=== PATIENT | male | born 2000 | race Caucasian/White ===

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

== ENCOUNTER 2021-10-09 20:00 | Emergency (ER) | payer MEDICAID ==
[~2021-10-09 20:00] MED LIST: METH-313 PO
--- NOTE | 2021-10-09 21:23 | ED General ---
General Chief Complaint: General Problems/Pain Stated Complaint: ALLERGIC REACTION History of Present Illness Date Seen by Provider: Oct 09, 2021 Time Seen by Provider: 20:50 Initial Comments 21-year-old male presents for respiratory distress earlier today after being in a storage unit that had animal dander, dust, and rodent droppings. Patient reports feeling as though his throat was swelling. Girlfriend reports that he had difficulty breathing earlier today, while at the pool for approxima tely 30 minutes but it resolved. This was prior to his exposure in the storage unit. Patient denies any known allergies, he has no history of asthma. He does not have a primary care provider or take medications regularly. He ambulated with a normal gait and had no shortness of air on presentation. Timing/Duration: 4-6 Hours Severity: Mild Associated Systoms: Denies Symptoms Allergies and Home Medications Patient Home Medication List Home Medication List Reviewed: Yes Methocarbamol (Robaxin-750) 750 Mg Tablet, 750 MG PO Q4H PRN for PAIN-MODERATE (5-7) Prescribed by: NEEL MAGUIRE on 03/08/19 1418 Review of Systems Review of Systems Constitutional: no symptoms reported, see HPI EENTM: see HPI, no symptoms reported Respiratory: no symptoms reported, see HPI, short of breath (Earlier today) Gastrointestinal: no symptoms reported, see HPI All Other Systems Reviewed Negative Unless Noted: Yes Past Ssgcwsc-Yhytam-Ihitbi Hx Patient Social History Tobacco Use?: Yes E-Cig or Vaping type used: Nicotine Alcohol Use?: No Seasonal Allergies Seasonal Allergies: No Past Medical History Surgeries: No Respiratory: No Cardiac: No Neurological: No Genitourinary: No Gastrointestinal: No Musculoskeletal: No Endocrine: No HEENT: No Cancer: No Psychosocial: No Integumentary: No Blood Disorders: No Family Medical History Reviewed Nursing Family Hx Physical Exam Vital Signs Vital Signs - First Documented Capillary Refill : Height, Weight, BMI Height: '" Weight: lbs. oz. kg; 29.00 BMI Method: General Appearance: No Apparent Distress, WD/WN HEENT: PERRL/EOMI, TMs Normal, Normal ENT Inspection, Pharynx Normal Neck: Full Range of Motion, Normal Inspection, Non Tender, Supple Respiratory: Chest Non Tender, Lungs Clear, Normal Breath Sounds Cardiovascular: Regular Rate, Rhythm, No Edema, No Murmur, Normal Peripheral Pulses Extremity: Normal Capillary Refill, Normal Inspection, Normal Range of Motion Neurologic/Psychiatric: Alert, Oriented x3, No Motor/Sensory Deficits, Normal Mood/Affect Skin: Normal Color, Warm/Dry Progress/Results/Core Measures Suspected Sepsis SIRS Temperature: Pulse: Respiratory Rate: Blood Pressure / Mean: Results/Orders Vital Signs/I&O 10/09/21 10/09/21 10/09/21 20:39 20:39 21:24 Temp 36.2 36.2 Pulse 86 78 Resp 16 16 B/P (MAP) 135/87 (103) 127/76 Pulse Ox 98 96 O2 Delivery Room Air Room Air Room Air Capillary Refill : Departure Impression Primary Impression: General medical exam Disposition: HOME, SELF-CARE Condition: Improved Departure-Patient Inst. Decision time for Depature: 21:15 Referrals: [facility],LOCAL PHYSICIAN (PCP) Primary Care Physician Patient Instructions: Allergic Reaction ED Add. Discharge Instructions: Wear a mask when you are in the storage unit. Keep door open for improved circulation. You can take Benadryl 25 mg 30 minutes prior to exposure. Establish care with a primary care provider at [facility]. Return to the emergency department for new, urgent healthcare problems. All discharge instructions reviewed with patient and/or family. Voiced understanding. KAUSHIK VERGARA Oct 09, 2021 21:23
[2021-10-09 21:24] VITALS: BP 127/76
== END 2021-10-09 21:29 | disposition home or self-care (01) ==
LOC: EDUNIT# 20:00 → ER 20:03
DX: J30.81 Allergic rhinitis due to animal (cat) (dog) hair and dander (principal); F17.290 Nicotine dependence, other tobacco product, uncomplicated; Z28.310 Unvaccinated for COVID-19
CPT/HCPCS: 99281

== ENCOUNTER 2022-01-29 23:15 | Emergency (ER) | payer MEDICAID ==
[~2022-01-29] VITALS: Ht 167.6 cm; Wt 104.3 kg
[2022-01-29] MEDS ORDERED: FAMOTIDINE 20 MG (PEPCID) TABLET PO STA (23:38)
--- NOTE | 2022-01-29 23:38 | ED Abdominal Pain ---
General Chief Complaint: Abdominal/GI Problems Stated Complaint: ABD PAIN,VOMITING Nursing Triage Note: PT AMB TO RM 10 WITH COMPLAINTS OF ABD PAIN THAT STARTED ABOUT 22 HOURS AGO. Source of Information: Patient Exam Limitations: No Limitations History of Present Illness Date Seen by Provider: Jan 29, 2022 Time Seen by Provider: 23:17 Initial Comments 21-year-old male with no pertinent past medical history coming in due to epigastric abdominal discomfort. Started almost 24 hours ago, constant, mild right now with the most no pain, but most was 8 out of 10. Feels like pressure to him. Says it radiates to his right flank at times. Denies any fever, dysuria, hematuria, chest pain, shortness of breath, current nausea, diarrhea, rash, or any other concerns. Did state after he ate breakfast at 10 AM he had an episode of nonbloody nonbilious vomiting. He states he has been belching quite a bit with it. Otherwise denies any other acute complaints. Allergies and Home Medications Allergies Coded Allergies: No Known Drug Allergies (Unverified , 01/29/22) Patient Home Medication List Home Medication List Reviewed: Yes Methocarbamol (Robaxin-750) 750 Mg Tablet, 750 MG PO Q4H PRN for PAIN-MODERATE (5-7) Prescribed by: NEEL MAGUIRE on 03/08/19 5588 Review of Systems Review of Systems Constitutional: No fever EENTM: No Nose Congestion Respiratory: Denies Cough Cardiovascular: Denies Chest Pain Gastrointestinal: Abdominal Pain Genitourinary: Denies Burning Musculoskeletal: no symptoms reported Skin: no symptoms reported Psychiatric/Neurological: No Symptoms Reported Endocrine: No Symptoms Reported Hematologic/Lymphatic: No Symptoms Reported All Other Systems Reviewed Negative Unless Noted: Yes Past Fpjeydg-Jqrewt-Kavzui Hx Patient Social History Tobacco Use?: Yes Tobacco type used: Cigarettes Substance use?: No Alcohol Use?: No Immunizations Up To Date Influenza Vaccine Up-to-Date: No; Not Current Seasonal Allergies Seasonal Allergies: No Past Medical History Surgeries: No Respiratory: No Cardiac: No Neurological: No Genitourinary: No Gastrointestinal: No Musculoskeletal: No Endocrine: No HEENT: No Cancer: No Psychosocial: No Integumentary: No Blood Disorders: No Physical Exam Vital Signs Vital Signs - First Documented 01/29/22 23:26 Pulse 90 B/P (MAP) 127/72 (90) Pulse Ox 96 Capillary Refill : Height/Weight/BMI Height: '" Weight: lbs. oz. kg; 37.00 BMI Method: General Appearance: WD/WN, no apparent distress HEENT: PERRL/EOMI, normal ENT inspection, pharynx normal Neck: non-tender, full range of motion, supple, normal inspection Respiratory: chest non-tender, lungs clear, normal breath sounds, no respiratory distress, no accessory muscle use Cardiovascular: regular rate, rhythm, no edema, no murmur Gastrointestinal: normal bowel sounds, non tender, soft; No distended, No guarding, No rebound Extremities: normal range of motion, non-tender, normal inspection, no pedal edema, no calf tenderness, normal capillary refill Back: normal inspection, no CVA tenderness, no vertebral tenderness Neurologic/Psychiatric: no motor/sensory deficits, alert, normal mood/affect Skin: normal color, warm/dry Lymphatic: no adenopathy Progress/Results/Core Measures Results/Orders Lab Results Laboratory Tests Test 01/29/22 23:40 01/30/22 00:14 Range/Units White Blood Count 16.6 H 4.3-11.0 10^3/uL Red Blood Count 5.83 H 4.30-5.52 10^6/uL Hemoglobin 16.5 13.3-17.7 g/dL Hematocrit 49 40-54 % Mean Corpuscular Volume 85 80-99 fL Mean Corpuscular Hemoglobin 28 25-34 pg Mean Corpuscular Hemoglobin Concent 34 32-36 g/dL Red Cell Distribution Width 12.4 10.0-14.5 % Platelet Count 293 130-400 10^3/uL Mean Platelet Volume 10.8 9.0-12.2 fL Immature Granulocyte % (Auto) 0 % Neutrophils (%) (Auto) 74 42-75 % Lymphocytes (%) (Auto) 14 12-44 % Monocytes (%) (Auto) 8 0-12 % Eosinophils (%) (Auto) 3 0-10 % Basophils (%) (Auto) 0 0-10 % Neutrophils # (Auto) 12.3 H 1.8-7.8 10^3/uL Lymphocytes # (Auto) 2.4 1.0-4.0 10^3/uL Monocytes # (Auto) 1.3 H 0.0-1.0 10^3/uL Eosinophils # (Auto) 0.4 H 0.0-0.3 10^3/uL Basophils # (Auto) 0.1 0.0-0.1 10^3/uL Immature Granulocyte # (Auto) 0.1 0.0-0.1 10^3/uL Sodium Level 138 135-145 MMOL/L Potassium Level 4.1 3.6-5.0 MMOL/L Chloride Level 101 98-107 MMOL/L Carbon Dioxide Level 26 21-32 MMOL/L Anion Gap 11 5-14 MMOL/L Blood Urea Nitrogen 12 7-18 MG/DL Creatinine 0.84 0.60-1.30 MG/DL Estimat Glomerular Filtration Rate 127 BUN/Creatinine Ratio 14 Glucose Level 106 H 70-105 MG/DL Calcium Level 10.8 H 8.5-10.1 MG/DL Corrected Calcium 8.5-10.1 MG/DL Total Bilirubin 0.8 0.1-1.0 MG/DL Aspartate Amino Transf (AST/SGOT) 33 5-34 U/L Alanine Aminotransferase (ALT/SGPT) 107 H 0-55 U/L Alkaline Phosphatase 93 40-136 U/L C-Reactive Protein High Sensitivity 1.06 H 0.00-0.50 MG/DL Total Protein 7.7 6.4-8.2 GM/DL Albumin 4.6 H 3.2-4.5 GM/DL Lipase 10 8-78 U/L Urine Color YELLOW Urine Clarity CLEAR Urine pH 8.0 5-9 Urine Specific [place] 1.015 L 1.016-1.022 Urine Protein NEGATIVE NEGATIVE Urine Glucose (UA) NEGATIVE NEGATIVE Urine Ketones NEGATIVE NEGATIVE Urine Nitrite NEGATIVE NEGATIVE Urine Bilirubin NEGATIVE NEGATIVE Urine Urobilinogen 1.0 < = 1.0 MG/DL Urine Leukocyte Esterase NEGATIVE NEGATIVE Urine RBC (Auto) NEGATIVE NEGATIVE Urine RBC NONE /HPF Urine WBC NONE /HPF Urine Crystals PRESENT H /LPF Urine Amorphous Sediment LARGE GURVINDER PHOSPHATE H /LPF Urine Bacteria NEGATIVE /HPF Urine Casts NONE /LPF Urine Mucus SMALL H /LPF Urine Culture Indicated NO My Orders Orders - KEVIN VASQUEZ MD Cbc With Automated Diff (01/29/22 23:36) Comprehensive Metabolic Panel (01/29/22 23:36) Hs C Reactive Protein (01/29/22 23:36) Lipase (01/29/22 23:36) Ua Culture If Indicated (01/29/22 23:36) Lidocaine 2% Viscous 15 Ml (Xylocaine Vi (01/29/22 23:45) Famotidine Tablet (Pepcid Tablet) (01/29/22 23:38) Antacid Suspension (Mylanta Suspension (01/29/22 23:45) Hyoscyamine Sl Tablet (Levsin Sl Tablet) (01/29/22 23:45) Ed Iv/Invasive Line Start (01/29/22 23:38) Ondansetron Injection (Zofran Injectio (01/29/22 23:45) Ketorolac Injection (Toradol Injection) (01/29/22 23:45) Manual Differential (01/29/22 23:40) Medications Given in ED Current Medications Medications Dose Ordered Sig/Kim Route Start Time Stop Time Status Last Admin Dose Admin Al Hydrox/Mg Hydrox/Simethicone 30 ml ONCE ONCE PO 01/29/22 23:45 01/29/22 23:46 DC 01/30/22 00:00 30 ML Hyoscyamine Sulfate 0.125 mg ONCE ONCE SL 01/29/22 23:45 01/29/22 23:46 DC 01/29/22 23:59 0.125 MG Ketorolac Tromethamine 15 mg ONCE ONCE IVP 01/29/22 23:45 01/29/22 23:46 DC 01/30/22 00:00 15 MG Lidocaine HCl 15 ml ONCE ONCE PO 01/29/22 23:45 01/29/22 23:46 DC 01/30/22 00:00 15 ML Ondansetron HCl 4 mg ONCE ONCE IVP 01/29/22 23:45 01/29/22 23:46 DC 01/29/22 23:59 4 MG Vital Signs/I&O 01/29/22 23:26 Pulse 90 B/P (MAP) 127/72 (90) Pulse Ox 96 Blood Pressure Mean: 90 Progress Progress Note : Progress Note 21-year-old male with above history coming in due to epigastric pain. ABCs were intact and vitals were stable on presentation. Physical exam reassuring including a soft and nontender abdomen on exam. An IV was placed and he was given a GI cocktail as well as Toradol for pain. His symptoms improved sig nificantly. His white blood cell count is elevated, creatinine normal, CRP just slightly elevated, but continues to not have any abdominal tenderness, specifically none in his right lower quadrant. Urinalysis with no signs of infection. Likely is GERD versus gastritis versus some other etiology. Overall he is well-appearing and I believe stable for outpatient follow-up. He was sent home with strict return precautions Departure Impression Primary Impression: Acute epigastric pain Disposition: HOME, SELF-CARE Condition: Stable Departure-Patient Inst. Decision time for Depature: 00:38 Referrals: NO,LOCAL PHYSICIAN (PCP/Family) Primary Care Physician Patient Instructions: Severe Abdominal Pain, Adult (DC) Add. Discharge Instructions: This could be gastritis or inflammation of your stomach from infection that we will have the past versus more related to reflux. It does not appear like you have any type of kidney infection and you were not tender over your appendix. Take tylenol as needed for pain at home. Follow-up with your regular doctor if things or not improving after the next 3 days or so. If things become really severe and you are worried you are having some type of emergency, of course please come back to the ER. Scripts Ondansetron (Ondansetron Odt) 4 Mg Tab.rapdis 4 MG SL Q6H PRN for NAUSEA/VOMITING for 5 Days, #20 TAB Prov: KEVIN VASQUEZ MD 01/30/22 Work/School Note: Work Release Form Date Seen in the Emergency Department: Jan 30, 2022 Return to Work: Jan 31, 2022 Restrictions: Return-No Fever (24hrs), Return-No Vomiting(24hrs) KEVIN VASQUEZ MD Jan 29, 2022 23:38
[2022-01-29] MEDS ORDERED: ONDANSETRON 4 MG/2 ML (SDV) Z0FRAN IVP ONE (23:45)
[2022-01-29] MEDS ORDERED: HYOSCYAMINE 0.125 MG (LEVSIN) TAB SL ONE (23:45)
[2022-01-29] MEDS ORDERED: KETOROLAC 30 MG/ML VIAL IVP ONE (23:45)
[2022-01-29] MEDS ORDERED: LIDOCAINE 2% VISCOUS 15 ML UDC PO ONE (23:45)
[2022-01-29] MEDS ORDERED: ANTACID SUSP 30 ML UDC (MYLANTA) PO ONE (23:45)
[2022-01-29 23:57] LABS: BASOPHILS # (AUTO) 0.1 10^3/uL (0.0-0.1); BASOPHILS % (AUTO) 0 % (0-10); EOSINOPHILS # (AUTO) 0.4 10^3/uL (0.0-0.3); EOSINOPHILS % (AUTO) 3 % (0-10); HEMATOCRIT 49 % (40-54); HEMOGLOBIN 16.5 g/dL (13.3-17.7); LYMPHOCYTES # (AUTO) 2.4 10^3/uL (1.0-4.0); LYMPHOCYTES % (AUTO) 14 % (12-44); MEAN CORPUSCULAR HEMOGLOBIN 28 pg (25-34); MEAN CORPUSCULAR HGB CONC 34 g/dL (32-36); MEAN CORPUSCULAR VOLUME 85 fL (80-99); MEAN PLATELET VOLUME 10.8 fL (9.0-12.2); MONOCYTES # (AUTO) 1.3 10^3/uL (0.0-1.0); MONOCYTES % (AUTO) 8 % (0-12); NEUTROPHILS # (AUTO) 12.3 10^3/uL (1.8-7.8); NEUTROPHILS % (AUTO) 74 % (42-75); PLATELET COUNT 293 10^3/uL (130-400); WHITE BLOOD COUNT 16.6 10^3/uL (4.3-11.0)
[2022-01-30 00:07] LABS: ALANINE AMINOTRANSFERASE 107 U/L (0-55); ALBUMIN 4.6 GM/DL (3.2-4.5); ALKALINE PHOSPHATASE 93 U/L (40-136); BILIRUBIN,TOTAL 0.8 MG/DL (0.1-1.0); BUN/CREATININE RATIO 14; CALCIUM 10.8 MG/DL (8.5-10.1); CARBON DIOXIDE 26 MMOL/L (21-32); CHLORIDE 101 MMOL/L (98-107); CREATININE SERUM 0.84 MG/DL (0.60-1.30); GFR ESTIMATED 127; GLUCOSE 106 MG/DL (70-105); LIPASE 10 U/L (8-78); POTASSIUM 4.1 MMOL/L (3.6-5.0); SODIUM 138 MMOL/L (135-145); TOTAL PROTEIN 7.7 GM/DL (6.4-8.2)
[2022-01-30 00:20] LABS: BILIRUBIN,URINE NEGATIVE (NEGATIVE); CLARITY,URINE CLEAR; COLOR,URINE YELLOW; GLUCOSE, URINE (UA) NEGATIVE (NEGATIVE); KETONES,URINE NEGATIVE (NEGATIVE); LEUKOCYTE ESTERASE ,URINE NEGATIVE (NEGATIVE); NITRITE,URINE NEGATIVE (NEGATIVE); PROTEIN,URINE NEGATIVE (NEGATIVE)
[2022-01-30 00:31] LABS: BACTERIA,URINE NEGATIVE /HPF
[2022-01-30 00:32] LABS: AMORPHOUS SEDIMENT,UR LARGE AMOR PHOSPHATE /LPF
[2022-01-30 00:37] LABS: EOSINOPHILS % (MANUAL) 5 %; LYMPHOCYTES % (MANUAL) 19 %; MONOCYTES % (MANUAL) 5 %; NEUTROPHILS % (MANUAL) 71 %; RBC MORPH NORMAL; TOXIC GRANULATION/VACUOLAZATIO 1+
[2022-01-30] MEDS ORDERED: ONDA4TAB11 SL (00:40)
[2022-01-30 00:50] VITALS: BP 133/87
[2022-01-31] MEDS ORDERED: FAMO-119 PO (21:12)
[2022-01-31] MEDS ORDERED: SUCR1TAB36 PO (21:12)
== END 2022-01-30 00:50 | disposition home or self-care (01) ==
LOC: EDUNIT# 23:15 → ER 23:21
DX: R10.13 Epigastric pain (principal); R11.10 Vomiting, unspecified; D72.829 Elevated white blood cell count, unspecified; R79.82 Elevated C-reactive protein (CRP); F17.210 Nicotine dependence, cigarettes, uncomplicated; Z28.310 Unvaccinated for COVID-19
CPT/HCPCS: 36415; 80053; 81000; 83690; 85007; 85027; 86141

== ENCOUNTER 2022-01-31 19:40 | Emergency (ER) | payer MEDICAID ==
[~2022-01-31] VITALS: Ht 167.6 cm; Wt 104.3 kg
[~2022-01-31 19:40] MED LIST changes: +ONDA4TAB11 SL
--- NOTE | 2022-01-31 20:07 | ED Abdominal Pain ---
General Chief Complaint: Abdominal/GI Problems Stated Complaint: N/V,ABD PAIN/CRAMPING,SORE THROAT,CONSTIPATION Nursing Triage Note: c/o epigastric pain, constipation, n/v, sore throat since saturday Source of Information: Patient Exam Limitations: No Limitations History of Present Illness Date Seen by Provider: Jan 31, 2022 Time Seen by Provider: 20:07 Allergies and Home Medications Allergies Coded Allergies: No Known Drug Allergies (Unverified , 01/29/22) Patient Home Medication List Famotidine (Pepcid) 20 Mg Tablet, 20 MG PO BID Prescribed by: LUISA ISABEL on 01/31/222111 Methocarbamol (Robaxin-750) 750 Mg Tablet, 750 MG PO Q4H PRN for PAIN-MODERATE (5-7) Prescribed by: NEEL MAGUIRE on 03/08/19 141 Ondansetron (Ondansetron Odt) 4 Mg Tab.rapdis, 4 MG SL Q6H PRN for NAUSEA/VOMITING Prescribed by: KEVIN VASQUEZ on 01/30/22 0040 Sucralfate (Carafate) 1 Gram Tablet, 1 GM PO QIDPCHS Prescribed by: LUISA ISABEL on 01/31/222111 Past Bgpdihg-Kmkbyx-Vqnrwk Hx Patient Social History Tobacco Use?: Yes Substance use?: No Alcohol Use?: No Pt feels they are or have been: No Immunizations Up To Date First/Initial COVID19 Vaccinat: na Seasonal Allergies Seasonal Allergies: No Past Medical History Surgery/Hospitalization HX: denies Surgeries: No Respiratory: No Cardiac: No Neurological: No Genitourinary: No Gastrointestinal: No Musculoskeletal: No Endocrine: No HEENT: No Cancer: No Psychosocial: No Integumentary: No Blood Disorders: No Physical Exam Vital Signs Vital Signs - First Documented 01/31/22 19:46 Temp 36.5 Pulse 85 Resp 16 B/P (MAP) 132/85 (101) Pulse Ox 97 O2 Delivery Room Air Capillary Refill : Less Than 3 Seconds Height/Weight/BMI Height: '" Weight: lbs. oz. kg; 37.00 BMI Method: Progress/Results/Core Measures Results/Orders Lab Results Laboratory Tests Test 01/31/22 20:00 01/31/22 20:22 Range/Units White Blood Count 15.3 H 4.3-11.0 10^3/uL Red Blood Count 5.97 H 4.30-5.52 10^6/uL Hemoglobin 16.9 13.3-17.7 g/dL Hematocrit 51 40-54 % Mean Corpuscular Volume 85 80-99 fL Mean Corpuscular Hemoglobin 28 25-34 pg Mean Corpuscular Hemoglobin Concent 33 32-36 g/dL Red Cell Distribution Width 12.4 10.0-14.5 % Platelet Count 292 130-400 10^3/uL Mean Platelet Volume 10.8 9.0-12.2 fL Immature Granulocyte % (Auto) 1 % Neutrophils (%) (Auto) 71 42-75 % Lymphocytes (%) (Auto) 17 12-44 % Monocytes (%) (Auto) 10 0-12 % Eosinophils (%) (Auto) 1 0-10 % Basophils (%) (Auto) 0 0-10 % Neutrophils # (Auto) 10.9 H 1.8-7.8 10^3/uL Lymphocytes # (Auto) 2.6 1.0-4.0 10^3/uL Monocytes # (Auto) 1.5 H 0.0-1.0 10^3/uL Eosinophils # (Auto) 0.2 0.0-0.3 10^3/uL Basophils # (Auto) 0.1 0.0-0.1 10^3/uL Immature Granulocyte # (Auto) 0.1 0.0-0.1 10^3/uL Neutrophils % (Manual) 66 % Lymphocytes % (Manual) 23 % Monocytes % (Manual) 10 % Eosinophils % (Manual) 1 % Blood Morphology Comment NORMAL Sodium Level 142 135-145 MMOL/L Potassium Level 4.0 3.6-5.0 MMOL/L Chloride Level 97 L 98-107 MMOL/L Carbon Dioxide Level 32 21-32 MMOL/L Anion Gap 13 5-14 MMOL/L Blood Urea Nitrogen 11 7-18 MG/DL Creatinine 1.00 0.60-1.30 MG/DL Estimat Glomerular Filtration Rate 110 BUN/Creatinine Ratio 11 Glucose Level 106 H 70-105 MG/DL Calcium Level 10.5 H 8.5-10.1 MG/DL Corrected Calcium 8.5-10.1 MG/DL Total Bilirubin 0.8 0.1-1.0 MG/DL Aspartate Amino Transf (AST/SGOT) 22 5-34 U/L Alanine Aminotransferase (ALT/SGPT) 74 H 0-55 U/L Alkaline Phosphatase 101 40-136 U/L Total Protein 8.3 H 6.4-8.2 GM/DL Albumin 4.6 H 3.2-4.5 GM/DL Influenza Type A (RT-PCR) Not Detected Not Detecte Influenza Type B (RT-PCR) Not Detected Not Detecte SARS-CoV-2 RNA (RT-PCR) Not Detected Not Detecte Urine Color YELLOW Urine Clarity CLEAR Urine pH 6.0 5-9 Urine Specific [place] 1.015 L 1.016-1.022 Urine Protein NEGATIVE NEGATIVE Urine Glucose (UA) NEGATIVE NEGATIVE Urine Ketones NEGATIVE NEGATIVE Urine Nitrite NEGATIVE NEGATIVE Urine Bilirubin NEGATIVE NEGATIVE Urine Urobilinogen 1.0 < = 1.0 MG/DL Urine Leukocyte Esterase NEGATIVE NEGATIVE Urine RBC (Auto) NEGATIVE NEGATIVE Urine RBC NONE /HPF Urine WBC NONE /HPF Urine Squamous Epithelial Cells NONE /HPF Urine Renal Epithelial Cells NONE /HPF Urine Crystals NONE /LPF Urine Bacteria NEGATIVE /HPF Urine Casts NONE /LPF Urine Mucus NEGATIVE /LPF Urine Culture Indicated NO My Orders Orders - LUISA ISABEL [employer] Covid 19 Inhouse Test (01/31/22 19:45) Influenza A And B By Pcr (01/31/22 19:45) Cbc And Manual Diff (01/31/22 19:53) Comprehensive Metabolic Panel (01/31/22 19:53) Ed Iv/Invasive Line Start (01/31/22 19:53) Ct Abdomen/Pelvis W (01/31/22 19:53) Ua Culture If Indicated (01/31/22 19:53) Iohexol Injection (Omnipaque 350 Mg/Ml 1 (01/31/22 20:15) Di Iv Start (Assessment) .IV start (01/31/22 20:08) Received Contrast (Hold Metformin- Contr (01/31/22 20:15) Ns (Ivpb) (Sodium Chloride 0.9% Ivpb Bag (01/31/22 20:15) Lidocaine 2% Viscous 15 Ml (Xylocaine Vi (01/31/22 20:45) Antacid Suspension (Mylanta Suspension (01/31/22 20:45) Medications Given in ED Current Medications Medications Dose Ordered Sig/Kim Route Start Time Stop Time Status Last Admin Dose Admin Al Hydrox/Mg Hydrox/Simethicone 30 ml ONCE ONCE PO 01/31/22 20:45 01/31/22 20:46 DC 01/31/22 20:52 30 ML Iohexol 100 ml ONCE ONCE IV 01/31/22 20:15 01/31/22 20:16 DC 01/31/22 20:12 100 ML Lidocaine HCl 15 ml ONCE ONCE PO 01/31/22 20:45 01/31/22 20:46 DC 01/31/22 20:53 15 ML Sodium Chloride 100 ml ONCE ONCE IV 01/31/22 20:15 01/31/22 20:16 DC 01/31/22 20:12 100 ML Vital Signs/I&O 01/31/22 19:46 Temp 36.5 Pulse 85 Resp 16 B/P (MAP) 132/85 (101) Pulse Ox 97 O2 Delivery Room Air Blood Pressure Mean: 101 Departure Impression Primary Impression: Gastritis Disposition: 01 HOME, SELF-CARE Condition: Improved Departure-Patient Inst. Decision time for Depature: 21:08 Referrals: NO,LOCAL PHYSICIAN (PCP/Family) Primary Care Physician Patient Instructions: Choosing Treatment for Low-Risk Localized Prostate Cancer, Gastritis Add. Discharge Instructions: Plan: 1. Avoid Spicy, greasy, citric, tomato-based, caffeine types of foods. Stick w ith clear liquids until you are no longer vomiting. 2. Continue with your Zofran every 6 hours as needed for nausea and vomiting. This may take a couple days to get the inflammation under control. 3. Take Pepcid twice a day morning and night. 4. Take Carafate 30 minutes to an hour before meals, you will do this 4 times a day. 5. If you have any persistent symptoms please follow-up with general surgery, you have been provided a list of general surgeons. You can call to schedule an appointment. 6. Return to the ER if you have any new, concerning, worsening symptoms. 7. I recommend you establish with a primary care provider of your choice, again you have been provided a list of local providers. You can call any of the providers and request to establish care. All discharge instructions reviewed with patient and/or family. Voiced understanding. Scripts Famotidine (Pepcid) 20 Mg Tablet 20 MG PO BID for 14 Days, #28 TAB 0 Refills Prov: LUISA ISABEL [employer] 01/31/22 Sucralfate (Carafate) 1 Gram Tablet 1 GM PO QIDPCHS for 14 Days, #56 TAB 0 Refills Prov: LUISA ISABEL APRN 01/31/22 Work/School Note: Work Release Form Date Seen in the Emergency Department: Jan 31, 2022 Return to Work: Feb 05, 2022 Restrictions: No Restrictions LUISA ISABEL APRN Jan 31, 2022 20:07
[2022-01-31 20:09] LABS: BASOPHILS # (AUTO) 0.1 10^3/uL (0.0-0.1); BASOPHILS % (AUTO) 0 % (0-10); EOSINOPHILS # (AUTO) 0.2 10^3/uL (0.0-0.3); EOSINOPHILS % (AUTO) 1 % (0-10); HEMATOCRIT 51 % (40-54); HEMOGLOBIN 16.9 g/dL (13.3-17.7); LYMPHOCYTES # (AUTO) 2.6 10^3/uL (1.0-4.0); LYMPHOCYTES % (AUTO) 17 % (12-44); MEAN CORPUSCULAR HEMOGLOBIN 28 pg (25-34); MEAN CORPUSCULAR HGB CONC 33 g/dL (32-36); MEAN CORPUSCULAR VOLUME 85 fL (80-99); MEAN PLATELET VOLUME 10.8 fL (9.0-12.2); MONOCYTES # (AUTO) 1.5 10^3/uL (0.0-1.0); MONOCYTES % (AUTO) 10 % (0-12); NEUTROPHILS # (AUTO) 10.9 10^3/uL (1.8-7.8); NEUTROPHILS % (AUTO) 71 % (42-75); PLATELET COUNT 292 10^3/uL (130-400); WHITE BLOOD COUNT 15.3 10^3/uL (4.3-11.0)
[2022-01-31] MEDS ORDERED: HOLD METFORMIN - RECEIVED CONTRAST 20 ML VIAL IV SCH (20:15)
[2022-01-31] MEDS ORDERED: NS 100 ML (IVPB) BAG IV ONE (20:15)
[2022-01-31] MEDS ORDERED: IOHEXOL 350 MG/ML 100 ML (OMNIPAQUE 350) VIAL IV ONE (20:15)
[2022-01-31 20:28] LABS: ALANINE AMINOTRANSFERASE 74 U/L (0-55); ALBUMIN 4.6 GM/DL (3.2-4.5); ALKALINE PHOSPHATASE 101 U/L (40-136); BILIRUBIN,TOTAL 0.8 MG/DL (0.1-1.0); BUN/CREATININE RATIO 11; CALCIUM 10.5 MG/DL (8.5-10.1); CARBON DIOXIDE 32 MMOL/L (21-32); CHLORIDE 97 MMOL/L (98-107); GFR ESTIMATED 110; GLUCOSE 106 MG/DL (70-105); SODIUM 142 MMOL/L (135-145); TOTAL PROTEIN 8.3 GM/DL (6.4-8.2)
[2022-01-31 20:29] LABS: BILIRUBIN,URINE NEGATIVE (NEGATIVE); CLARITY,URINE CLEAR; COLOR,URINE YELLOW; GLUCOSE, URINE (UA) NEGATIVE (NEGATIVE); KETONES,URINE NEGATIVE (NEGATIVE); LEUKOCYTE ESTERASE ,URINE NEGATIVE (NEGATIVE); NITRITE,URINE NEGATIVE (NEGATIVE); PROTEIN,URINE NEGATIVE (NEGATIVE)
[2022-01-31 20:31] LABS: EOSINOPHILS % (MANUAL) 1 %; LYMPHOCYTES % (MANUAL) 23 %; MONOCYTES % (MANUAL) 10 %; NEUTROPHILS % (MANUAL) 66 %; RBC MORPH NORMAL
--- NOTE | 2022-01-31 20:33 | Diagnostic Imaging Report ---
EXAMINATION: CT abdomen and pelvis with intravenous contrast. TECHNIQUE: Multiple contiguous axial images were obtained through the abdomen and pelvis after the uneventful administration of intravenous contrast. All CT scans use one or more of the following dose optimizing techniques: automated exposure control, MA and/or KvP adjustment based on patient size and exam type or iterative reconstruction. HISTORY: Abdominal pain. COMPARISON: None available. FINDINGS: Limited views of the lower thorax are unremarkable. The liver is normal without focal lesion. There is no biliary ductal dilation. Gallbladder is normal. Pancreas is normal. Spleen is normal. Adrenal glands are normal. The kidneys are normal. There is no hydronephrosis. Urinary bladder is normal. There is wall thickening of the gastric antrum suggestive of gastritis. Bowel is normal in caliber without obstruction or inflammation. No free fluid or air. No abdominal or pelvic lymphadenopathy. Aorta is normal in caliber without aneurysm. There is no suspicious osseous lesion. IMPRESSION: Wall thickening of the gastric antrum suggestive of gastritis. Dictated by: Dictated on workstation # [id number]
[2022-01-31 20:35] LABS: BACTERIA,URINE NEGATIVE /HPF
[2022-01-31] MEDS ORDERED: LIDOCAINE 2% VISCOUS 15 ML UDC PO ONE (20:45)
[2022-01-31] MEDS ORDERED: ANTACID SUSP 30 ML UDC (MYLANTA) PO ONE (20:45)
[2022-01-31] MEDS ORDERED: FAMO-119 PO (21:12)
[2022-01-31] MEDS ORDERED: SUCR1TAB36 PO (21:12)
[2022-01-31 21:21] VITALS: BP 138/93
== END 2022-01-31 21:21 | disposition home or self-care (01) ==
LOC: EDUNIT# 19:40 → ER 19:43
DX: K29.70 Gastritis, unspecified, without bleeding (principal); Z72.0 Tobacco use; Z20.822 Contact with and (suspected) exposure to COVID-19; Z28.310 Unvaccinated for COVID-19
CPT/HCPCS: 36415; 74177; 80053; 81000; 85007; 85027; 87636